=== PATIENT | male | born 1985 | race Caucasian/White ===

== ENCOUNTER 2019-09-12 11:11 | Outpatient (CLI) | payer MEDICARE, MEDICAID ==
[~2019-09-12 11:11] MED LIST: KEN0.1O TP
== END 2019-09-12 23:59 | disposition home or self-care (01) ==
LOC: RAD 11:11
PROVIDERS: ATTEND Obstetrics & Gynecology
DX: F11.20 Opioid dependence, uncomplicated (principal); K21.9 Gastro-esophageal reflux disease without esophagitis
CPT/HCPCS: 93005

== ENCOUNTER 2020-07-10 01:59 | Emergency (ER) | payer MEDICARE, MEDICAID ==
[~2020-07-10] VITALS: Ht 177.8 cm; Wt 100.0 kg
[2020-07-10 02:19] VITALS: BP 142/100
[2020-07-10] MEDS ORDERED: normal saline 1000ML IV soln IVB ONE (02:35)
== END 2020-07-10 02:53 | disposition left against medical advice (07) ==
LOC: ER 02:00
DX: F11.90 Opioid use, unspecified, uncomplicated (principal); F15.90 Other stimulant use, unspecified, uncomplicated; R07.89 Other chest pain; G89.29 Other chronic pain; Z56.0 Unemployment, unspecified; Z79.899 Other long term (current) drug therapy
CPT/HCPCS: 93005; 99283